=== PATIENT | female | born 1945 | race Two or more races ===

== ENCOUNTER → 2016-07-23 | Outpatient (CLI) | payer MEDICARE | LOC: LABWHC1 13:49 | PROVIDERS: ATTEND Internal Medicine Endocrinology, Diabetes & Metabolism | DX: E04.2 Nontoxic multinodular goiter (principal) | CPT/HCPCS: 36415; 84439; 84443 ==

== ENCOUNTER 2018-03-10 09:22 | Emergency (ER) | payer MEDICARE ==
--- NOTE | 2018-03-10 10:17 | ED ---
General Adult HPI - General Chief complaint: Dizziness Stated complaint: fall, head injury, dizziness Source: patient Mode of arrival: ambulatory Limitations: no limitations - History of Present Illness Initial comments: Dictation was produced using [employer] dictation software. please excuse any grammatical, word or spelling errors. Chief Complaint: 72-year-old female with past medical history of insomnia presents with dizziness. History of Present Illness: Patient was sent here by her orthopedic surgeon. She was supposed have a cervical epidural injection. She reports that approximately one week ago she fell. She's been having intermittent episodes of lightheadedness. She denies the sensation of the room spinning. She denies any exacerbations with head movement. Patient states that when she sits for prolonged periods of time when she looks up to the distant she feels a little faint. Denies any syncope or presyncope. Denies any vision loss or any other neurologic deficits. She was sent here to get a computed tomography scan of her head to rule out intracranial bleed or any other facial injuries. Patient otherwise feels well. Denies any changes in her medications. The ROS documented in this emergency department record has been reviewed and confirmed by me. Those systems with pertinent positive or negative responses have been documented in the HPI. All other systems are other negative and/or noncontributory. - Related Data Home Medications Medication Instructions Recorded Confirmed Zolpidem Tartrate [Ambien] 10 mg PO HS PRN 03/10/18 03/10/18 Allergies Allergy/AdvReac Type Severity Reaction Status Date / Time Penicillins Allergy Rash/Hives Verified 03/10/18 09:38 Review of Systems ROS Statement: Those systems with pertinent positive or pertinent negative responses have been documented in the HPI. ROS Other: All systems not noted in ROS Statement are negative. Past Medical History Additional Past Medical History / Comment(s): neck pain History of Any Multi-Drug Resistant Organisms: None Reported Past Surgical History: Cholecystectomy, Hysterectomy, Tonsillectomy, Tubal Ligation Past Psychological History: No Psychological Hx Reported Smoking Status: Never smoker Past Alcohol Use History: None Reported Past Drug Use History: None Reported General Exam - General Exam Comments Initial Comments: PHYSICAL EXAM: General Impression: Alert and oriented x3, not in acute distress HEENT: Normocephalic atraumatic, extra-ocular movements intact, pupils equal and reactive to light bilaterally, mucous membranes moist. Cardiovascular: Heart regular rate and rhythm, S1&S2 audible, no murmurs, rubs or gallops Chest: Lungs clear to auscultation bilaterally, no rhonchi, no wheeze, no rales Abdomen: Bowel sounds present, abdomen soft, non-tender, non-distended, no organomegaly Musculoskeletal: Pulses present and equal in all extremities, no peripheral edema Motor: Power 5/5 bilaterally, no focal deficits noted Neurological: CN II-XII grossly intact, no focal motor or sensory deficits noted Skin: Intact with no visualized rashes Psych: Normal affect and mood Limitations: no limitations Course Vital Signs 03/10/18 09:24 Temperature 97.6 F Pulse Rate 63 Respiratory 18 Rate Blood Pressure 113/59 O2 Sat by Pulse 98 Oximetry Medical Decision Making - Medical Decision Making ED course: 82-year-old female who was supposed to receive a spinal epidural injection in the cervical spine presents with request by intervening doctor for computed tomography scan of the head to rule out H Bryce agreed secondary to patient having episodic dizziness. Vital signs upon arrival are within acceptable limits. Patient is well-appearing. She feels asymptomatic at this time. Physical examination is benign. Given that patient's dizziness is not likely secondary to intracranial bleed recommended to patient to obtain blood labs. Patient states she did not want them she only wanted computed tomography scan of the brain. Discussed with patient that her dizziness could be likely secondary to dehydration versus electrolyte abnormality. She states that she does not want any blood tests performed. CT of the head, C-spine and max face were all within normal limits. Patient and laboratory baseline. Discussed patient that she should follow-up with her primary care physician upon discharge patient understandable agreeable. All questions and concerns answered and addressed. Disposition Clinical Impression: Dizziness Disposition: HOME SELF-CARE Condition: Good Instructions: Dizziness (ED) Is patient prescribed a controlled substance at d/c from ED?: No Referrals: Denny Morales MD [Primary Care Provider] - 1-2 days Time of Disposition: 11:29
--- NOTE | 2018-03-10 11:08 | CT ---
EXAMINATION TYPE: CT brain cspine wo con, CT facial bones wo con DATE OF EXAM: 03/10/2018 COMPARISON: NONE HISTORY: Fall with subsequent head and neck pain. CT DLP: 1245.1 (accession [id number]), included in brain (accession [id number]) mGycm. Automated Exposure Control for Dose Reduction was Utilized. TECHNIQUE: CT scan of the head and cervical spine are performed without contrast. FINDINGS: There is no acute intracranial hemorrhage, mass effect, or midline shift identified. The ventricles and sulci are within normal limits in size. The globes are intact and the visualized sin uses are clear. CSF attenuated old lacunar injury is seen of the right lentiform nucleus. No suspicio us extra-axial fluid collection is appreciated. Cervical spine is visualized in its entirety from C1 through upper thoracic levels and demonstrates s atisfactory alignment without evidence of acute fracture or dislocation. Prevertebral soft tissue ap pears within normal limits. Multilevel degenerative change of the cervical spine is seen with small posterior disc osteophyte complexes at C4-C5, C5-C6 and C6-C7. There is straightening of usual cervic al lordosis and very minimal anterolisthesis of C3 on C4 and C4 and C5, likely due to facet hypertrop hy as there is facet hypertrophy at this levels and no prevertebral soft tissue swelling. There is de generative narrowing of the atlantodental interval. The C1-C2 articulation is unremarkable. Incident al note is made of a lipomatous lesion measuring 3.1 cm of the right trapezius. Mild emphysematous ch anges are seen at the lung apices with pleural parenchymal thickening. Thyroid appears slightly enlar ged and heterogenous. No discrete nodule seen on CT. The lenses appear surgically absent. Globes and extraocular muscles are symmetric. Dental fillings cr eates spray artifact and partially obscure direct surrounding visualization. The distal tip of the na yolanda bone is not within the [id number]. Remainder the nasal bone is intact as is the nasal septum w ith a small leftward nasal septal spur. Maxillary spine is intact as are the zygomatic arches and pte rygoid plates. Mandibular condyles are located within the mandibular fossa. No bony orbital fracture is seen. IMPRESSION: 1. There is no acute fracture or dislocation evident in the cervical spine. 2. No acute intracranial hemorrhage, mass effect, or midline shift is seen. 3. No evidence of acute displaced facial bone fracture. 4. Multilevel mild to moderate degenerative change of the cervical spine. 5. Old right basal ganglia lacunar injury.
[2018-03-10 11:59] VITALS: BP 129/70; PULSE 78; RESP 16; TEMP 98.7
== END 2018-03-10 11:59 | disposition home or self-care (01) ==
LOC: EC 09:22
DX: R42 Dizziness and giddiness (principal); S09.90XA Unspecified injury of head, initial encounter; Z90.49 Acquired absence of other specified parts of digestive tract; Z90.710 Acquired absence of both cervix and uterus; Z98.51 Tubal ligation status; Z88.0 Allergy status to penicillin; W01.0XXA Fall on same level from slipping, tripping and stumbling without subsequent striking against object, initial encounter; Y92.000 Kitchen of unspecified non-institutional (private) residence as the place of occurrence of the external cause
CPT/HCPCS: 70450; 70486; 72125; 93005; 99284